=== PATIENT | male | born 1965 | race Caucasian/White ===

== ENCOUNTER 2021-10-14 13:28 | Inpatient (IN) | payer OTHER ==
[~2021-10-14] VITALS: Ht 175.3 cm; Wt 74.8 kg
[2021-10-14 14:02] LABS: HEMOGLOBIN 15.9 gm/dl (14.0-17.5); RED BLOOD COUNT 5.09 M/UL (4.20-5.50); WHITE BLOOD COUNT 4.8 K/UL (4.5-11.0)
[2021-10-14 14:25] LABS: BUN/CREATININE RATIO 17 (0-10)
[2021-10-15 01:17] LABS: HEMOGLOBIN 14.8 gm/dl (14.0-17.5); RED BLOOD COUNT 4.72 M/UL (4.20-5.50); WHITE BLOOD COUNT 5.1 K/UL (4.5-11.0)
[2021-10-15 01:44] LABS: BUN/CREATININE RATIO 14 (0-10)
[2021-10-15] MEDS ORDERED: ASPIRIN 325MG325 MG PO (18:17)
[2021-10-15] MEDS ORDERED: LOPRESSOR 25 MG25 MG PO (18:17)
[2021-10-15] MEDS ORDERED: ATORVASTATIN CA20 MG PO (18:17)
== END 2021-10-15 19:06 | disposition home or self-care (01) | DRG 311 ==
LOC: ER1 13:28 → CDU 18:40 → M/S 18:40
PROVIDERS: Physician Assistant; ADMIT Internal Medicine
PROC: B24BZZZ Ultrasonography of Heart with Aorta (ICD-10-PCS; principal; 2021-10-15)
DX: I20.9 Angina pectoris, unspecified (principal); E87.1 Hypo-osmolality and hyponatremia; Z20.822 Contact with and (suspected) exposure to COVID-19; F15.10 Other stimulant abuse, uncomplicated; F17.210 Nicotine dependence, cigarettes, uncomplicated; F10.10 Alcohol abuse, uncomplicated; I48.0 Paroxysmal atrial fibrillation; E03.9 Hypothyroidism, unspecified; E78.5 Hyperlipidemia, unspecified; Z91.14 Patient's other noncompliance with medication regimen; Z86.73 Personal history of transient ischemic attack (TIA), and cerebral infarction without residual deficits; Z86.718 Personal history of other venous thrombosis and embolism; Z79.01 Long term (current) use of anticoagulants; Z90.49 Acquired absence of other specified parts of digestive tract; Z82.49 Family history of ischemic heart disease and other diseases of the circulatory system
CPT/HCPCS: ECHO; 71045; 78452; 80048; 80053; 80061; 82550; 82553; 83036; 83735; 84439; 84443; 84484; 85025; 85027; 93005; 93017; 93306; 99285; A9502; J2785; U0002